=== PATIENT | male | born 1990 | race Asian ===

== ENCOUNTER 2018-05-18 22:56 | Emergency (ER) | payer OTHER ==
[~2018-05-18] VITALS: Ht 175.3 cm; Wt 104.3 kg
[2018-05-18] MEDS ORDERED: LANS30CA PO (23:09)
[2018-05-18] MEDS ORDERED: NS IV 1000 ML 1,000 ML IV STA (23:22)
[2018-05-18] MEDS ORDERED: FAMOTIDINE 20MG/2ML IV (PEPCID) IV STA (23:22)
[2018-05-18] MEDS ORDERED: PANTOPRAZOLE 40 MG (PROTONIX) VIAL IV ONE (23:30)
[2018-05-18] MEDS ORDERED: ANTACID SUSP 30 ML UDC (MYLANTA) PO ONE (23:30)
[2018-05-18] MEDS ORDERED: LIDOCAINE 2% VISCOUS 15 ML UDC PO ONE (23:30)
[2018-05-18 23:42] LABS: BASOPHILS # (AUTO) 0.1 10^3/uL (0.0-0.1); BASOPHILS % (AUTO) 1 % (0-10); EOSINOPHILS % (AUTO) 1 % (0-10); HEMATOCRIT 47 % (40-54); HEMOGLOBIN 16.1 G/DL (13.3-17.7); LYMPHOCYTES # (AUTO) 2.4 X 10^3 (1.0-4.0); LYMPHOCYTES % (AUTO) 27 % (12-44); MEAN CORPUSCULAR HEMOGLOBIN 30 PG (25-34); MEAN CORPUSCULAR HGB CONC 34 G/DL (32-36); MEAN CORPUSCULAR VOLUME 88 FL (80-99); MONOCYTES # (AUTO) 0.5 X 10^3 (0.0-1.0); MONOCYTES % (AUTO) 6 % (0-12); NEUTROPHILS # (AUTO) 5.8 X 10^3 (1.8-7.8); NEUTROPHILS % (AUTO) 66 % (42-75); PLATELET COUNT 246 10^3/uL (130-400); RED BLOOD COUNT 5.38 10^6/uL (4.35-5.85); RED CELL DISTRIBUTION WIDTH 12.8 % (10.0-14.5); WHITE BLOOD COUNT 8.8 10^3/uL (4.3-11.0)
--- NOTE | 2018-05-18 23:43 | ED GI ---
General Chief Complaint: Abdominal/GI Problems Stated Complaint: VOMITING BLOOD, ULCERS Nursing Triage Note: EPIGASTRIC PAIN, HEMATAEMISIS, HX STOMACH ULCERS, NOT TAKING MEDICATIONS. HEADACHE. Sepsis Screen: No Definite Risk Source of Information: Patient Exam Limitations: No Limitations History of Present Illness Date Seen by Provider: May 18, 2018 Time Seen by Provider: 23:15 Initial Comments Here with report of abdominal pain in the epigastric region and has been getting worse over the last several days. Previously was only lansoprazole but is out of that medicine. He is here from [place] at school and does not have new prescription. Pain is worse at night. Does admit to smoking cigarettes and spicy food which is not helping. Has not taken anything recently for this. Does have history of ulcers. States stools are normal and not black or red. The vomiting is infrequent but occasional and feels like there is some blood in the vomit. Concerned because he is not out of sleep at night and has school tomorrow and would like a school note to be out of school tomorrow so he can rest. Timing/Duration: 1 Week, Changing Over Time, Getting Worse Severity/Quality: Moderate, Burning Location: Epigastric Radiation: No Radiation Activities at Onset: None Modifying Factors: Worsens With Eating Associated Symptoms: No Back Pain, No Chest Pain, No Fever/Chills; Nausea/ Vomiting; No Shortness of Air, No Weakness Allergies and Home Medications Allergies Coded Allergies: No Known Drug Allergies (Unverified , 05/18/18) Patient Home Medication List Home Medication List Reviewed: Yes Review of Systems Review of Systems Constitutional: see HPI; No chills, No fever EENTM: No Symptoms Reported Respiratory: No Symptoms Reported Cardiovascular: No Symptoms Reported Gastrointestinal: See HPI, Abdominal Pain, Nausea; Denies Rectal Bleeding; Vomiting Genitourinary: No Symptoms Reported Musculoskeletal: no symptoms reported Skin: no symptoms reported Psychiatric/Neurological: No Symptoms Reported All Other Systems Reviewed Negative Unless Noted: Yes Past Bamexgn-Truyqq-Impsmx Hx Past Med/Social Hx: Reviewed Nursing Past Med/Soc Hx Patient Social History Alcohol Use: Occasionally Uses Recreational Drug Use: No Smoking Status: Never a Smoker 2nd Hand Smoke Exposure: No Recent Foreign Travel: No Contact w/Someone Who Travel: No Recent Infectious Disease Expo: No Recent Hopitalizations: No Immunizations Up To Date Tetanus Booster (TDap): Unknown Seasonal Allergies Seasonal Allergies: No Past Medical History Surgeries: No Respiratory: No Cardiac: No Neurological: No Genitourinary: No Gastrointestinal: Yes Gastroesophageal Reflux Musculoskeletal: No Endocrine: No HEENT: No Cancer: No Psychosocial: No Integumentary: No Blood Disorders: No Family Medical History Reviewed Nursing Family Hx No Pertinent Family Hx Physical Exam Vital Signs Vital Signs - First Documented 05/18/18 23:09 Temp 98.9 Pulse 89 Resp 16 B/P (MAP) 119/77 (91) Pulse Ox 97 O2 Delivery Room Air Capillary Refill : Less Than 3 Seconds Height/Weight/BMI Height: 5'9.00" Weight: 230lbs. oz. 104.365190qh; BMI Method:Estimated General Appearance: WD/WN, no apparent distress HEENT: PERRL/EOMI, pharynx normal Neck: full range of motion, supple Respiratory: lungs clear, normal breath sounds, no respiratory distress, no accessory muscle use Cardiovascular: regular rate, rhythm, no murmur Gastrointestinal: soft; No guarding, No rebound; tenderness (mild epigastric) Extremities: normal range of motion, non-tender, normal inspection Back: normal inspection, no CVA tenderness, no vertebral tenderness Neurologic/Psychiatric: alert, oriented x 3 Skin: normal color, warm/dry Progress/Results/Core Measures Results/Orders Lab Results Laboratory Tests Test 05/18/18 23:35 Range/Units White Blood Count 8.8 4.3-11.0 10^3/uL Red Blood Count 5.38 4.35-5.85 10^6/uL Hemoglobin 16.1 13.3-17.7 G/DL Hematocrit 47 40-54 % Mean Corpuscular Volume 88 80-99 FL Mean Corpuscular Hemoglobin 30 25-34 PG Mean Corpuscular Hemoglobin Concent 34 32-36 G/DL Red Cell Distribution Width 12.8 10.0-14.5 % Platelet Count 246 130-400 10^3/uL Mean Platelet Volume 11.0 H 7.4-10.4 FL Neutrophils (%) (Auto) 66 42-75 % Lymphocytes (%) (Auto) 27 12-44 % Monocytes (%) (Auto) 6 0-12 % Eosinophils (%) (Auto) 1 0-10 % Basophils (%) (Auto) 1 0-10 % Neutrophils # (Auto) 5.8 1.8-7.8 X 10^3 Lymphocytes # (Auto) 2.4 1.0-4.0 X 10^3 Monocytes # (Auto) 0.5 0.0-1.0 X 10^3 Eosinophils # (Auto) 0.0 0.0-0.3 10^3/uL Basophils # (Auto) 0.1 0.0-0.1 10^3/uL Sodium Level 139 135-145 MMOL/L Potassium Level 4.0 3.6-5.0 MMOL/L Chloride Level 104 98-107 MMOL/L Carbon Dioxide Level 24 21-32 MMOL/L Anion Gap 11 5-14 MMOL/L Blood Urea Nitrogen 11 7-18 MG/DL Creatinine 0.91 0.60-1.30 MG/DL Estimat Glomerular Filtration Rate > 60 BUN/Creatinine Ratio 12 Glucose Level 115 H 70-105 MG/DL Calcium Level 10.0 8.5-10.1 MG/DL Corrected Calcium 8.5-10.1 MG/DL Total Bilirubin 0.7 0.1-1.0 MG/DL Aspartate Amino Transf (AST/SGOT) 20 5-34 U/L Alanine Aminotransferase (ALT/SGPT) 32 0-55 U/L Alkaline Phosphatase 89 40-136 U/L Total Protein 8.2 6.4-8.2 GM/DL Albumin 4.7 H 3.2-4.5 GM/DL My Orders Orders - EMILIA URBAN MD Cbc With Automated Diff (05/18/18 23:22) Comprehensive Metabolic Panel (05/18/18 23:22) Lidocaine 2% Viscous 15 Ml (Xylocaine Vi (05/18/18 23:30) Ns Iv 1000 Ml (Sodium Chloride 0.9%) (05/18/18 23:22) Antacid Suspension (Mylanta Suspension (05/18/18 23:30) Saline Lock/Iv-Start (05/18/18 23:22) Pantoprazole Injection (Protonix Injecti (05/18/18 23:30) Famotidine Injection (Pepcid Injection) (05/18/18 23:22) Ketorolac Injection (Toradol Injection) (05/19/18 00:25) Medications Given in ED Current Medications Medications Dose Ordered Sig/Lars Route Start Time Stop Time Status Last Admin Dose Admin Al Hydrox/Mg Hydrox/Simethicone 30 ml ONCE ONCE PO 05/18/18 23:30 05/18/18 23:31 DC 05/18/18 23:34 30 ML Lidocaine HCl 15 ml ONCE ONCE PO 05/18/18 23:30 05/18/18 23:31 DC 05/18/18 23:34 15 ML Pantoprazole 40 mg ONCE ONCE IV 05/18/18 23:30 05/18/18 23:31 DC 05/18/18 23:34 40 MG Vital Signs/I&O 05/18/18 23:09 Temp 98.9 Pulse 89 Resp 16 B/P (MAP) 119/77 (91) Pulse Ox 97 O2 Delivery Room Air Blood Pressure Mean: 91 Progress Progress Note : Progress Note Seen and evaluated. IV, labs, normal saline 1 L bolus, GI cocktail, Pepcid 20 mg IV and Protonix 40 mg IV ordered. Monitor patient. 0020: Overall improved. Still has mild headache. Toradol 30 mg IV ordered. Discharged home with return precautions. Patient verbalize understanding instructions and agreement with plan. Patient instructed to follow-up with surgeon for further evaluation including endoscopy if needed. Also instructed to follow-up with [facility] to help with referral if needed and for follow-up area. Departure Impression Primary Impression: Gastric ulcer Qualified Codes: K25.9 - Gastric ulcer, unspecified as acute or chronic, without hemorrhage or perforation Additional Impression: Gastroesophageal reflux disease Qualified Codes: K21.9 - Gastro-esophageal reflux disease without esophagitis Disposition: 01 HOME, SELF-CARE Condition: Stable Departure-Patient Inst. Decision time for Depature: 23:41 Referrals: PETE STEVENS BRETT D DO JENKINS, XAVIER M MD KIDO, TAKAAKI MD Patient Instructions: Acid Reflux (Gastroesophageal Reflux Disease) in Adults, Acute Abdomen (Belly Pain), Adult (DC), Urinary Tract Infection, Adult (DC) Add. Discharge Instructions: All discharge instructions reviewed with patient and/or family. Voiced understanding. Take medications as directed. Follow-up with [facility] within a few days for recheck. You should follow-up with a surgeon of your choice or as referred through [facility] for recheck and further evaluation to include possible upper endoscopy (scope) to evaluate for ulcers. Return for worse pain , fever, vomiting, weakness, breathing problems or other concerns as needed. You may take Tylenol PM per package directions to assist with sleep as needed. You may discuss your sleep problems with [facility] as they will assist with this as well. Scripts Sucralfate (Sucralfate) 1 Gm Tablet 1 GM PO ACHS, #120 TAB 0 Refills Chew tablet to a slurry and then swallow Prov: EMILIA URBAN MD 05/19/18 Lansoprazole (Lansoprazole) 30 Mg Capsule.dr 30 MG PO DAILY, #30 CAP 0 Refills Prov: EMILIA URBAN MD 05/19/18 Work/School Note: School/Childcare Release Date Seen in the Emergency Department: May 19, 2018 Time Dismissed from Emergency Department: 00:31 Return to School: May 22, 2018 Restrictions: No Restrictions Other Restrictions Listed Below: Please excuse from school 05/19/18 for illness Copy Copies To 1: DEMETRIUS TINAJERO MD, TIMOTHY D MD May 18, 2018 23:42
[2018-05-19 00:01] LABS: ALANINE AMINOTRANSFERASE 32 U/L (0-55); ALBUMIN 4.7 GM/DL (3.2-4.5); ALKALINE PHOSPHATASE 89 U/L (40-136); BILIRUBIN,TOTAL 0.7 MG/DL (0.1-1.0); BUN/CREATININE RATIO 12; CARBON DIOXIDE 24 MMOL/L (21-32); CHLORIDE 104 MMOL/L (98-107); CREATININE SERUM 0.91 MG/DL (0.60-1.30); GFR ESTIMATED > 60; GLUCOSE 115 MG/DL (70-105); SODIUM 139 MMOL/L (135-145); TOTAL PROTEIN 8.2 GM/DL (6.4-8.2)
[2018-05-19] MEDS ORDERED: KETOROLAC 30 MG/ML VIAL IVP STA (00:25)
[2018-05-19] MEDS ORDERED: SUCR1TAB PO (00:29)
[2018-05-19] MEDS ORDERED: LANS30CA PO (00:29)
[2018-05-19 00:39] VITALS: BP 119/78
== END 2018-05-19 00:39 | disposition home or self-care (01) ==
LOC: ER 22:57
DX: K25.9 Gastric ulcer, unspecified as acute or chronic, without hemorrhage or perforation (principal); K21.9 Gastro-esophageal reflux disease without esophagitis; F17.210 Nicotine dependence, cigarettes, uncomplicated
CPT/HCPCS: 36415; 80053; 85025

== ENCOUNTER 2018-07-31 17:35 | Emergency (ER) | payer OTHER ==
[~2018-07-31] VITALS: Ht 175.3 cm; Wt 104.3 kg
[~2018-07-31 17:35] MED LIST: LANS30CA PO; SUCR1TAB PO
[2018-07-31 17:40] VITALS: BP 132/86
--- NOTE | 2018-07-31 17:50 | ED EENT ---
History of Present Illness General Chief Complaint: Wound Check (No Charge) Stated Complaint: END OF Q-TIP STUCK IN L EAR Source: patient Exam Limitations: no limitations History of Present Illness Date Seen by Provider: Jul 31, 2018 Time Seen by Provider: 17:47 Initial Comments Concerned that a Q-tip might have broken off in his ear because he cannot find the tip of the Q-tip. He has no pain. Timing/Duration: abrupt, other Location: ear (L) Associated Symptoms: denies symptoms Allergies and Home Medications Allergies Coded Allergies: No Known Drug Allergies (Unverified , 05/18/18) Home Medications Lansoprazole 30 Mg Capsule.dr, 30 MG PO DAILY Prescribed by: EMILIA URBAN on 05/19/1828 Sucralfate 1 Gm Tablet, 1 GM PO ACHS Chew tablet to a slurry and then swallow Prescribed by: EMILIA URBAN on 05/19/1828 Patient Home Medication List Home Medication List Reviewed: Yes Review of Systems Review of Systems Constitutional: see HPI Eyes: No Symptoms Reported Ears: See HPI, Other (no discomfort that he cannot find the tip of the Q-tip so he assumed it may be in his ear and noticed) Nose: no symptoms reported Mouth: no symptoms reported Throat: no symptoms reported Respiratory: no symptoms reported Cardiovascular: no symptoms reported Musculoskeletal: no symptoms reported Past Hveszjh-Pgwmox-Snjria Hx Patient Social History 2nd Hand Smoke Exposure: No Recent Foreign Travel: No Contact w/Someone Who Travel: No Recent Hopitalizations: No Immunizations Up To Date Tetanus Booster (TDap): Unknown Seasonal Allergies Seasonal Allergies: No Past Medical History Surgeries: No Respiratory: No Cardiac: No Neurological: No Genitourinary: No Gastrointestinal: Yes Gastroesophageal Reflux Musculoskeletal: No Endocrine: No HEENT: No Cancer: No Psychosocial: No Integumentary: No Blood Disorders: No Family Medical History No Pertinent Family Hx Physical Exam Height, Weight, BMI Height: 5'9.00" Weight: 230lbs. oz. [id number]; BMI Method:Estimated General Appearance: WD/WN, no apparent distress Eyes: bilateral eye normal inspection, bilateral eye PERRL, bilateral eye EOMI Ears: left ear other (tympanic membrane is without any sign of trauma such as erythema, there is no swelling or abrasion or laceration of the ear canal. There is no foreign body identified. Tympanic membrane is intact.) Neck: non-tender, full range of motion Departure Impression Primary Impression: General medical exam Disposition: 01 HOME, SELF-CARE Condition: Stable Departure-Patient Inst. Decision time for Depature: 17:49 Referrals: [facility] (PCP) Primary Care Physician Patient Instructions: General (DC) Add. Discharge Instructions: All discharge instructions reviewed with patient and/or family. Voiced understanding. SVETA VAZQUEZ APRN Jul 31, 2018 17:49
== END 2018-07-31 17:45 | disposition left against medical advice (07) ==
LOC: EDUNIT# 17:35 → ER 17:36
DX: H92.02 Otalgia, left ear (principal); K21.9 Gastro-esophageal reflux disease without esophagitis; W22.09XA Striking against other stationary object, initial encounter

== ENCOUNTER → 2018-08-18 | Outpatient (CLI) | payer OTHER | END | disposition home or self-care (01) | LOC: PREOP 07:45 | PROVIDERS: ATTEND Surgery | DX: Z01.818 Encounter for other preprocedural examination (principal) ==

== ENCOUNTER → 2019-04-09 | Outpatient (CLI) | payer OTHER | END | disposition home or self-care (01) | LOC: PREOP 06:56 | PROVIDERS: ATTEND Surgery | DX: Z01.818 Encounter for other preprocedural examination (principal) ==

== ENCOUNTER 2019-05-07 11:00 | Day surgery (SDC) | payer OTHER ==
[~2019-05-07] VITALS: Ht 172.7 cm; Wt 117.0 kg
[2019-05-07] MEDS ORDERED: LACTATED RINGERS 1,000 ML IV ONE (11:07)
--- NOTE | 2019-05-07 11:21 | Progress Note-Pre Operative ---
Pre-Operative Progress Note H&P Reviewed The H&P was reviewed, patient examined and no changes noted. Time Seen by Provider: 11:18 Date H&P Reviewed: May 07, 2019 Time H&P Reviewed: 11:19 Pre-Operative Diagnosis: Hx PUD, chronic gastritis PETE STEVENS DO May 07, 2019 11:21 POS
[2019-05-07] MEDS ORDERED: LACTATED RINGERS 1,000 ML IV STA (11:36)
[2019-05-07 11:43] VITALS: BP 127/88
[2019-05-07] MEDS ORDERED: HURRICAINE EXT TUBE (BENZOCAINE) XX PRN (11:45)
[2019-05-07] MEDS ORDERED: proPOfol 200 MG/20 ML (DIPRIVAN) VIAL IV ONE (13:37)
[2019-05-07] MEDS ORDERED: HURRICAINE EXT TUBE (BENZOCAINE) ONE (13:43)
[2019-05-07 14:00] VITALS: BP 136/71
[2019-05-07 14:05] VITALS: BP 148/91
--- NOTE | 2019-05-07 14:06 | Progress Note-Post Operative ---
Post-Operative Progess Note Surgeon (s)/Custodial Worker (s) Surgeon PETE STEVENS DO Custodial Worker: none Pre-Operative Diagnosis Hx PUD, chronic gastritis Post-Operative Diagnosis Gastritis ??Grimes's Esophagus Procedure & Operative Findings Date of Procedure 05/07/19 Procedure Performed/Findings EGD with bx Anesthesia Type IV sedation by ADMISSIONS OFFICER Estimated Blood Loss Estimated blood loss (mL): scant Specimens/Packing Specimens Removed duodenal bx antral bx Body of stomach bx GE jxn bx PETE STEVENS DO May 07, 2019 14:06 POS
--- NOTE | 2019-05-07 14:07 | Endoscopy Discharge Instruct ---
Endo Procedure/Findings Findings 1.: Gastritis 2.: Grimes's Esophagus (possibly) Discharge Instructions - Activity: You might feel a little sleepy until tomorrow. This is due to the medicine you received to relax you. Until tomorrow, you should: NOT drive a car, operate machinery or power tools. NOT drink any alcoholic beverages. NOT make any important decisions or sign importortant papers. Do not return to work until tomorrow, unless otherwise instructed. Resume previous activities tomorrow. Diet: Start by taking liquids. If you tolerate liquids, advance to solid food. make an appointment for one week 1.: EGD in 1 year Notify Physician - If you experience excessive bleeding, unusual abdominal pain, fever, or chest pain, contact your doctor immediately. PETE STEVENS DO May 07, 2019 14:07 POS
[2019-05-07 14:10] VITALS: BP 136/85
--- NOTE | 2019-05-07 14:23 | Anesthesia-General Post-Op ---
MAC Patient Condition Mental Status/LOC: Same as Preop Cardiovascular: Satisfactory Nausea/Vomiting: Absent Respiratory: Satisfactory Pain: Controlled Complications: Absent Post Op Complications Complications None Follow Up Care/Instructions Patient Instructions None needed. Anesthesiology Discharge Order Discharge Order Patient is doing well, no complaints, stable vital signs, no apparent adverse anesthesia problems. No complications reported per nursing. CHRISTY OSMAN CRNA May 07, 2019 14:23 POS
[2019-05-07 14:35] VITALS: BP 136/85
--- NOTE | 2019-05-07 15:13 | OPERATIVE REPORT ---
DATE OF SERVICE: 05/07/2019 PREOPERATIVE DIAGNOSES: History of peptic ulcer disease and gastritis. POSTOPERATIVE DIAGNOSES: Gastritis, possible Grimes's esophagus. PROCEDURE: EGD with biopsy. SURGEON: Leroy Beltran DO GAMING MANAGER: None. ANESTHESIA: IV sedation by MANAGER SEMICONDUCTOR. SPECIMEN: Biopsy from the duodenum, biopsy from the antrum, biopsy of the body of the stomach, biopsy of the GE junction. BLOOD LOSS: Scant. FLUIDS: Per anesthesia. POSTOPERATIVE CONDITION: Stable. INDICATION FOR PROCEDURE: The patient is a 28-year-old male, who has been having burning epigastric pain in the past and diagnosed with peptic ulcer disease, has chronic gastritis and has taken medicine if pain comes back. FINDINGS: The patient had some mild gastritis, but he did have some changes at the GE junction, possible early Grimes's esophagus and the duodenum looked like it was thinned out a little bit. PROCEDURE NOTE: After informed consent was obtained, the patient was brought to the endoscopy suite and placed in the bed in left lateral decubitus position. He was administered IV sedation by the MANAGER SEMICONDUCTOR, who then monitored his vitals the entire time, heart rate, blood pressure and pulse ox. Scope was inserted down the mouth through the esophagus into the stomach. Once in the stomach, took a picture of the antrum, looked like there was some mild gastritis. Also took a picture of the GE junction way down, looked like early possibly Grimes's esophagus. The patient did not appear to really have a small hiatal hernia. The duodenum looked a little bit thinned out. In the duodenum, elected to do a biopsy, took a picture here, then pulled back into the antrum, did a biopsy of antrum, then retroflexed the scope, did not really see hiatal hernia, did a biopsy of the body of stomach and then pulled the scope into the GE junction, did a biopsy of the GE junction, then pushed the scope into the stomach, and suctioned out the air and then pulled the scope up the esophagus and out the mouth. The patient tolerated the procedure, recovered in the endoscopy suite. Job ID: [id number] DocumentID: [id number] Dictated Date: 05/07/2019 14:10:33 Front Desk Auxiliary Date: 05/07/2019 15:12:09 Dictated By: LEROY BELTRAN DO
== END 2019-05-07 14:35 | disposition home or self-care (01) ==
LOC: ENDO 11:00
PROVIDERS: ATTEND Surgery
DX: K29.50 Unspecified chronic gastritis without bleeding (principal); K21.9 Gastro-esophageal reflux disease without esophagitis; F17.210 Nicotine dependence, cigarettes, uncomplicated; E66.9 Obesity, unspecified; Z68.39 Body mass index [BMI] 39.0-39.9, adult; Z87.11 Personal history of peptic ulcer disease; Z83.3 Family history of diabetes mellitus; Z82.49 Family history of ischemic heart disease and other diseases of the circulatory system
CPT/HCPCS: 88305